=== PATIENT | female | born 1955 | race Caucasian/White ===

== ENCOUNTER 2017-01-24 08:14 | Outpatient (REF) ==
[~2017-01-24 08:14] MED LIST: GLUCOPHAGE1000 MG PO; GLUCOTROL10 MG PO; ZESTRIL5 MG PO; [UNRECOGNIZED DRUG - REMARK]
== END 2017-01-24 21:07 | disposition home or self-care (01) ==
LOC: MRD 08:14
DX: Z02.1 Encounter for pre-employment examination (principal)

== ENCOUNTER 2017-03-30 07:04 | Outpatient (CLI) | payer OTHER ==
[~2017-03-30 07:04] MED LIST changes: +GLIP10TA3 PO; -GLUCOPHAGE1000 MG PO; -GLUCOTROL10 MG PO; +LISI5TAB18 PO; +METF1000 PO; -ZESTRIL5 MG PO; -[UNRECOGNIZED DRUG - REMARK]
[2017-03-30 08:30] LABS: ALBUMIN 3.9 g/dL (3.4-5.0); ANION GAP 11.2 (8-16); CARBON DIOXIDE 26.9 mmol/L (21-32); CREATININE 0.9 mg/dL (0.6-1.3); MAGNESIUM 1.4 mg/dL (1.8-2.4); POTASSIUM 4.1 mmol/L (3.5-5.1); TOTAL BILIRUBIN 0.9 mg/dL (0.0-1.0); TOTAL PROTEIN, SERUM 7.2 g/dL (6.4-8.2)
[2017-03-30 15:55] LABS: CHOL/HDL RATIO 2.6 (1-4.5)
== END 2017-03-30 17:31 | disposition home or self-care (01) ==
LOC: MLB 07:04
PROVIDERS: ATTEND Internal Medicine Geriatric Medicine
DX: E11.9 Type 2 diabetes mellitus without complications (principal)
CPT/HCPCS: 36415; 80053; 83036; 83735

== ENCOUNTER → 2018-03-25 | Outpatient (CLI) | payer OTHER ==
[2018-03-25 09:53] LABS: BASOPHILS % (AUTO) 0.5 % (0.0-2.0); EOSINOPHILS # (AUTO) 0.1 K/uL (0-0.4); EOSINOPHILS % (AUTO) 1.7 % (0.0-4.0); HEMATOCRIT 42.2 % (36-48); HEMOGLOBIN 14.5 g/dL (12.0-16.0); LYMPHOCYTES # (AUTO) 2.4 K/uL (2.5-16.5); MEAN CORPUSCULAR HEMOGLOBIN 33 pg (27-31); MEAN CORPUSCULAR HGB CONC 34 g/dL (33-37); MEAN CORPUSCULAR VOLUME 95.6 fL (80-94); MONOCYTES # (AUTO) 0.4 K/uL (0.8-1.0); MONOCYTES % (AUTO) 5.2 % (1.7-9.3); NEUTROPHILS % (AUTO) 57.6 % (42.2-75.2); PLATELET COUNT (AUTO) 254 K/uL (140-450); RED BLOOD CELL COUNT(AUTO) 4.41 MIL/uL (4.20-5.40); RED CELL DISTRIBUTION WIDTH 12.9 % (11.6-13.7); WHITE BLOOD COUNT (AUTO) 6.9 K/uL (4.8-10.8)
[2018-03-25 10:10] LABS: ANION GAP 14.1 (8-16); CARBON DIOXIDE 26.1 mmol/L (21-32); CHOL/HDL RATIO 2.3 (1-4.5); POTASSIUM 4.2 mmol/L (3.5-5.1); TOTAL BILIRUBIN 0.7 mg/dL (0.0-1.0)
[2018-03-25 10:23] LABS: ALBUMIN 4.4 g/dL (3.4-5.0); CREATININE 0.9 mg/dL (0.6-1.3)
[2018-03-26 09:14] LABS: MICROALBUMIN, UR RANDOM 140.5 ug/mL (Not Estab.)
== END ==
LOC: MLB 09:32
PROVIDERS: ATTEND Internal Medicine Geriatric Medicine
DX: E11.9 Type 2 diabetes mellitus without complications (principal); I10 Essential (primary) hypertension; E55.9 Vitamin D deficiency, unspecified
CPT/HCPCS: 36415; 80053; 82043; 82306; 83036; 85025

== ENCOUNTER 2018-08-02 16:43 | Emergency (ER) | payer OTHER ==
[~2018-08-02] VITALS: Ht 157.5 cm; Wt 66.7 kg
[2018-08-02 16:46] VITALS: BP 159/88
[2018-08-02 17:53] VITALS: BP 150/82
== END 2018-08-02 17:53 | disposition home or self-care (01) ==
LOC: MED 16:43
DX: S80.861A Insect bite (nonvenomous), right lower leg, initial encounter (principal); M79.604 Pain in right leg; E11.9 Type 2 diabetes mellitus without complications; I10 Essential (primary) hypertension; Z79.84 Long term (current) use of oral hypoglycemic drugs; Z79.899 Other long term (current) drug therapy; W57.XXXA Bitten or stung by nonvenomous insect and other nonvenomous arthropods, initial encounter; W10.9XXA Fall (on) (from) unspecified stairs and steps, initial encounter; Y93.89 Activity, other specified; Y92.480 Sidewalk as the place of occurrence of the external cause; Y99.8 Other external cause status
CPT/HCPCS: 73590; 99284; Q0092

== ENCOUNTER 2018-10-16 13:52 | Emergency (ER) | payer OTHER ==
[~2018-10-16] VITALS: Ht 157.5 cm; Wt 66.7 kg
[2018-10-16 13:57] VITALS: BP 134/76
--- NOTE | 2018-10-16 13:59 | NUR ---
PT AMBULATED TO E
--- NOTE | 2018-10-16 14:00 | NUR ---
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 0/10 PAIN CMS INTACT.
--- NOTE | 2018-10-16 14:20 | NUR ---
Patient discharged with v/s stable. Written and verbal after care instructions given and explained. Patient verbalized understanding. Ambulatory with steady gait. All questions addressed prior to discharge. Advised to follow up with PMD.
[2018-10-16 16:14] VITALS: BP 120/78
--- NOTE | 2018-10-16 16:15 | NUR ---
Cass whitten in EDM - 10/16/18 at 1615 by [email or web address] Patient discharged with v/s stable. Written and verbal after care instructions given and explained. Patient verbalized understanding. Ambulatory with steady gait. All questions addressed prior to discharge. Advised to follow up with PMD.
[2018-10-17 06:25] LABS: HEPATITIS B CORE AB TOTAL Negative (Negative); HEPATITIS B SURFACE ANTIBODY Reactive (.); HEPATITIS B SURFACE ANTIGEN Negative (Negative); HEPATITIS C VIRUS ANTIBODY <0.1 s/co ratio (0.0-0.9)
== END 2018-10-16 14:20 | disposition home or self-care (01) ==
LOC: MED 13:52
DX: S61.031A Puncture wound without foreign body of right thumb without damage to nail, initial encounter (principal); E11.9 Type 2 diabetes mellitus without complications; I10 Essential (primary) hypertension; Z79.84 Long term (current) use of oral hypoglycemic drugs; Z79.899 Other long term (current) drug therapy; W46.0XXA Contact with hypodermic needle, initial encounter; Y93.89 Activity, other specified; Y92.234 Operating room of hospital as the place of occurrence of the external cause; Y99.0 Civilian activity done for income or pay
CPT/HCPCS: 36415; 86702; 86704; 86706; 86803; 87340; 99283

== ENCOUNTER 2018-11-02 16:47 | Emergency (ER) | payer OTHER ==
[~2018-11-02] VITALS: Ht 157.5 cm; Wt 66.7 kg
[2018-11-02 16:52] VITALS: BP 136/102
--- NOTE | 2018-11-02 16:54 | NUR ---
PT AMBULATED TO E
--- NOTE | 2018-11-02 17:00 | NUR ---
63 YO F BIB SELF W/ C/O SORE THROAT X 2 WEEKS. STATES SHE GETS COUGHING ATTACKS. 8/10 PAIN. DENIES N/V/D/FEVERS/CP. NO OTHER COMPLAINTS. PT W/ PATENT AIRWAY. SPEAKING IN FULL,COMPETE SENTENCES. AAOX4, GCS 15. CMS INTACT, RR EVEN AND UNLABORED. LUNGS BL CLEAR. ABD SOFT, NON-TENDER. ER MD NOTIFIED OF PT STATUS. PT NEEDS MET. SAFETY PRECAUTIONS IN PLACE. WILL CONTINUE TO MONITOR.
--- NOTE | 2018-11-02 17:26 | NUR ---
dr. cline evaluating pt
[2018-11-02 17:37] VITALS: BP 129/88
--- NOTE | 2018-11-02 17:37 | NUR ---
Patient discharged with v/s stable. Written and verbal after care instructions given and explained. Patient alert, oriented and verbalized understanding of instructions. Ambulatory with steady gait. All questions addressed prior to discharge. ID band removed. Patient advised to follow up with PMD. Rx of naprosyn and promethazine given. Patient educated on indication of medication including possible reaction and side effects. Opportunity to ask questions provided and answered.
== END 2018-11-02 17:37 | disposition home or self-care (01) ==
LOC: MED 16:47
DX: J20.9 Acute bronchitis, unspecified (principal); E11.9 Type 2 diabetes mellitus without complications; I10 Essential (primary) hypertension; Z90.49 Acquired absence of other specified parts of digestive tract; Z90.710 Acquired absence of both cervix and uterus; Z79.84 Long term (current) use of oral hypoglycemic drugs; Z79.899 Other long term (current) drug therapy
CPT/HCPCS: 99283

== ENCOUNTER 2018-11-16 17:05 | Emergency (ER) | payer OTHER ==
[~2018-11-16] VITALS: Ht 165.1 cm; Wt 69.2 kg
[2018-11-16 17:13] VITALS: BP 124/98
[2018-11-16 18:26] VITALS: BP 124/98
== END 2018-11-16 18:13 | disposition home or self-care (01) ==
LOC: MED 17:05
DX: J20.9 Acute bronchitis, unspecified (principal); E11.9 Type 2 diabetes mellitus without complications; I10 Essential (primary) hypertension; Z79.899 Other long term (current) drug therapy; Z79.84 Long term (current) use of oral hypoglycemic drugs
CPT/HCPCS: 99283

== ENCOUNTER 2018-11-17 11:08 | Emergency (ER) | payer OTHER ==
[~2018-11-17] VITALS: Ht 157.5 cm; Wt 67.2 kg
[2018-11-17] MEDS ORDERED: NACL 0.9% 1,000 ML IV SCH (11:18)
[2018-11-17] MEDS ORDERED: ONDANSETRON 4 MG/2 ML VIAL IVP ONE (11:20)
[2018-11-17 11:25] VITALS: BP 122/63
--- NOTE | 2018-11-17 11:35 | NUR ---
PT. ARRIVED TO THE ED DUE TO VOMITING SINCE THIS MORNING, PT. STATES " I WENT TO [place] LAST NIGHT AND ATE SOME [employer] CHEESE FRIES AND THEN TOOK MY ANTIBIOTIC AND AROUND 3 AM I STARTED VOMITING ALL MY DINNER". 0/10 PAIN AT THIS TIME. DENIES NAUSEA AT THIS TIME. DENIES ANY BLOOD IN STOOL OR VOMIT. AFEBRILE. DENIES ANY FEEVR OR CHILLS. RR EVEN AND UNLABORED. VSS. PT. COOL AND WARM TO TOUCH. WILL CONTINUE TO MONITOR. SAFETY PRECAUTIONS IN PLACE. ER MADE AWARE.
--- NOTE | 2018-11-17 11:45 | NUR ---
lab specimen picked up at this time
[2018-11-17 12:02] LABS: BASOPHILS % (AUTO) 0.1 % (0.0-2.0); EOSINOPHILS % (AUTO) 0.3 % (0.0-4.0); HEMATOCRIT 39.3 % (36-48); LYMPHOCYTES # (AUTO) 0.7 K/uL (2.5-16.5); LYMPHOCYTES % (AUTO) 5.8 % (20.5-51.1); MEAN CORPUSCULAR HEMOGLOBIN 32 pg (27-31); MEAN CORPUSCULAR HGB CONC 33 g/dL (33-37); MEAN CORPUSCULAR VOLUME 95.9 fL (80-94); MONOCYTES # (AUTO) 0.5 K/uL (0.8-1.0); MONOCYTES % (AUTO) 3.8 % (1.7-9.3); NEUTROPHILS # (AUTO) 10.9 K/uL (1.8-7.7); PLATELET COUNT (AUTO) 239 K/uL (140-450); RED BLOOD CELL COUNT(AUTO) 4.09 MIL/uL (4.20-5.40); RED CELL DISTRIBUTION WIDTH 12.8 % (11.6-13.7); WHITE BLOOD COUNT (AUTO) 12.1 K/uL (4.8-10.8)
--- NOTE | 2018-11-17 12:13 | NUR ---
PT. RESTING COMFORTABLY IN BED, VSS. HOB ELEVATED. WILL CONTINUE TO MONITOR.
[2018-11-17 12:19] LABS: ANION GAP 14.4 (8-16); CARBON DIOXIDE 26.8 mmol/L (21-32); CREATININE 1.2 mg/dL (0.6-1.3); POTASSIUM 4.2 mmol/L (3.5-5.1); TOTAL BILIRUBIN 0.9 mg/dL (0.0-1.0)
--- NOTE | 2018-11-17 12:24 | NUR ---
SAMARA FROM LAB CALLED TO REPORT GLUCOSE :[phone]. ER MD MANNING MADE AWARE.
[2018-11-17 13:40] VITALS: BP 132/57
--- NOTE | 2018-11-17 13:40 | NUR ---
Patient discharged with v/s stable. Written and verbal after care instructions given and explained. Patient alert, oriented and verbalized understanding of instructions. Ambulatory with steady gait. All questions addressed prior to discharge. ID band removed. Patient advised to follow up with PMD. Rx of ZOFRAN 8MG AND PREDNISONE 20MG given. Patient educated on indication of medication including possible reaction and side effects. Opportunity to ask questions provided and answered.
== END 2018-11-17 13:40 | disposition home or self-care (01) ==
LOC: MED 11:08
DX: R05 Cough (principal); R06.02 Shortness of breath; R19.7 Diarrhea, unspecified; R11.2 Nausea with vomiting, unspecified; E11.9 Type 2 diabetes mellitus without complications; I10 Essential (primary) hypertension; Z90.49 Acquired absence of other specified parts of digestive tract; Z90.710 Acquired absence of both cervix and uterus; Z90.89 Acquired absence of other organs; Z79.84 Long term (current) use of oral hypoglycemic drugs; Z79.899 Other long term (current) drug therapy
CPT/HCPCS: 36415; 71045; 80053; 82948; 83690; 85025; 96360; 99284; J7030

== ENCOUNTER 2019-01-08 08:39 | Outpatient (CLI) | payer OTHER ==
[2019-01-08 09:52] LABS: ANION GAP 10.1 (8-16); CARBON DIOXIDE 26.8 mmol/L (21-32); CHOL/HDL RATIO 2.3 (1-4.5); CREATININE 0.8 mg/dL (0.6-1.3); POTASSIUM 4.9 mmol/L (3.5-5.1); TOTAL BILIRUBIN 0.9 mg/dL (0.0-1.0)
== END 2019-01-08 21:36 | disposition home or self-care (01) ==
LOC: MLB 08:39
PROVIDERS: ATTEND Internal Medicine Geriatric Medicine
DX: E11.9 Type 2 diabetes mellitus without complications (principal); I10 Essential (primary) hypertension
CPT/HCPCS: 36415; 80053; 83036

== ENCOUNTER 2019-03-06 16:42 | Outpatient (CLI) | payer OTHER | END 2019-03-06 21:28 | disposition home or self-care (01) | LOC: MRD 16:42 | PROVIDERS: ATTEND Internal Medicine Geriatric Medicine | DX: M43.17 Spondylolisthesis, lumbosacral region (principal); M48.07 Spinal stenosis, lumbosacral region; M16.12 Unilateral primary osteoarthritis, left hip | CPT/HCPCS: 72110; 73501; 73590 ==

== ENCOUNTER 2019-03-10 19:07 | Emergency (ER) | payer OTHER ==
[~2019-03-10] VITALS: Ht 157.5 cm; Wt 68.0 kg
[2019-03-10 19:11] VITALS: BP 150/85
--- NOTE | 2019-03-10 19:13 | NUR ---
TO CHAIR E AMBULATORY
--- NOTE | 2019-03-10 19:45 | NUR ---
Patient discharged with v/s stable. Written and verbal after care instructions given and explained. Patient alert, oriented and verbalized understanding of instructions. Ambulatory with steady gait. All questions addressed prior to discharge. ID band removed. Patient advised to follow up with PMD. Opportunity to ask questions provided and answered.
--- NOTE | 2019-03-10 19:46 | NUR ---
PT BIB SELF C/O NEEDLE STICK TO LEFT HAND. DENIES PAIN, BLEEDING CONTROLLED.
[2019-03-10 19:47] VITALS: BP 147/80
[2019-03-13 09:25] LABS: HEPATITIS B CORE AB TOTAL Negative (Negative); HEPATITIS B SURFACE ANTIBODY Reactive (.); HEPATITIS B SURFACE ANTIGEN Negative (Negative); HEPATITIS C VIRUS ANTIBODY <0.1 s/co ratio (0.0-0.9)
== END 2019-03-10 19:45 | disposition home or self-care (01) ==
LOC: MED 19:07
DX: S61.432A Puncture wound without foreign body of left hand, initial encounter (principal); I10 Essential (primary) hypertension; E11.9 Type 2 diabetes mellitus without complications; Z90.89 Acquired absence of other organs; Z79.84 Long term (current) use of oral hypoglycemic drugs; W46.1XXA Contact with contaminated hypodermic needle, initial encounter; Y93.89 Activity, other specified; Y92.238 Other place in hospital as the place of occurrence of the external cause; Y99.8 Other external cause status
CPT/HCPCS: 36415; 86702; 86704; 86706; 86803; 87340; 99283

== ENCOUNTER 2019-03-24 10:03 | Outpatient (CLI) | payer OTHER ==
[2019-03-24 10:40] LABS: BASOPHILS # (AUTO) 0.1 K/uL (0.00-0.22); BASOPHILS % (AUTO) 1.6 % (0.0-2.0); EOSINOPHILS # (AUTO) 0.2 K/uL (0-0.4); EOSINOPHILS % (AUTO) 2.2 % (0.0-4.0); HEMATOCRIT 39.2 % (36-48); HEMOGLOBIN 13.3 g/dL (12.0-16.0); LYMPHOCYTES # (AUTO) 1.8 K/uL (2.5-16.5); LYMPHOCYTES % (AUTO) 25.8 % (20.5-51.1); MEAN CORPUSCULAR HEMOGLOBIN 32 pg (27-31); MEAN CORPUSCULAR HGB CONC 34 g/dL (33-37); MEAN CORPUSCULAR VOLUME 95.5 fL (80-94); MONOCYTES # (AUTO) 0.3 K/uL (0.8-1.0); NEUTROPHILS # (AUTO) 4.7 K/uL (1.8-7.7); NEUTROPHILS % (AUTO) 66.4 % (42.2-75.2); PLATELET COUNT (AUTO) 273 K/uL (140-450); RED BLOOD CELL COUNT(AUTO) 4.11 MIL/uL (4.20-5.40); RED CELL DISTRIBUTION WIDTH 12.5 % (11.6-13.7); WHITE BLOOD COUNT (AUTO) 7.2 K/uL (4.8-10.8)
[2019-03-24 10:56] LABS: ALBUMIN 4.1 g/dL (3.4-5.0); ANION GAP 13.3 (8-16); CARBON DIOXIDE 26.9 mmol/L (21-32); CREATININE 1.1 mg/dL (0.6-1.3); POTASSIUM 4.2 mmol/L (3.5-5.1); TOTAL BILIRUBIN 0.8 mg/dL (0.0-1.0)
== END 2019-03-24 23:04 | disposition home or self-care (01) ==
LOC: MLB 10:03
PROVIDERS: ATTEND Internal Medicine Geriatric Medicine
DX: E55.9 Vitamin D deficiency, unspecified (principal); E11.9 Type 2 diabetes mellitus without complications
CPT/HCPCS: 36415; 80053; 83036; 85025

== ENCOUNTER 2019-07-08 18:44 | Emergency (ER) | payer OTHER ==
[~2019-07-08] VITALS: Ht 157.5 cm; Wt 66.7 kg
[2019-07-08 19:02] VITALS: BP 128/77
--- NOTE | 2019-07-08 19:30 | NUR ---
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 NO BLEEDING NOTED AT THIS TIME. NO C/O PAIN. TDAP FROM LAST [address] A[address] MD [address] AUSTIN MADE AWARE WILL CONTINUE TO MONITOR CLOSELY. HX--DM, HTN
--- NOTE | 2019-07-08 19:33 | NUR ---
DR. MANNING EVALUATING PT
[2019-07-08 19:43] VITALS: BP 117/69
[2019-07-10 07:10] LABS: HEPATITIS B SURFACE ANTIGEN Negative (Negative)
== END 2019-07-08 19:43 | disposition home or self-care (01) ==
LOC: MED 18:44
DX: S61.233A Puncture wound without foreign body of left middle finger without damage to nail, initial encounter (principal); E11.9 Type 2 diabetes mellitus without complications; I10 Essential (primary) hypertension; Z90.49 Acquired absence of other specified parts of digestive tract; Z90.710 Acquired absence of both cervix and uterus; Z79.899 Other long term (current) drug therapy; W27.3XXA Contact with needle (sewing), initial encounter; Y93.89 Activity, other specified; Y92.89 Other specified places as the place of occurrence of the external cause; Y99.8 Other external cause status
CPT/HCPCS: 36415; 86592; 86702; 86803; 87340; 99283

== ENCOUNTER 2019-09-08 12:05 | Outpatient (CLI) | payer OTHER | END 2019-09-08 20:43 | disposition home or self-care (01) | LOC: MRD 12:05 | PROVIDERS: ATTEND Internal Medicine Geriatric Medicine | DX: M43.16 Spondylolisthesis, lumbar region (principal); M51.14 Intervertebral disc disorders with radiculopathy, thoracic region; M47.26 Other spondylosis with radiculopathy, lumbar region; Z90.49 Acquired absence of other specified parts of digestive tract | CPT/HCPCS: 72080 ==

== ENCOUNTER 2019-09-17 07:54 | Outpatient (CLI) | payer OTHER ==
[2019-09-17 08:21] LABS: BASOPHILS % (AUTO) 0.8 % (0.0-2.0); EOSINOPHILS # (AUTO) 0.1 K/uL (0-0.4); EOSINOPHILS % (AUTO) 1.6 % (0.0-4.0); HEMATOCRIT 37.1 % (36-48); HEMOGLOBIN 12.6 g/dL (12.0-16.0); LYMPHOCYTES % (AUTO) 40.9 % (20.5-51.1); MEAN CORPUSCULAR HEMOGLOBIN 33 pg (27-31); MEAN CORPUSCULAR HGB CONC 34 g/dL (33-37); MEAN CORPUSCULAR VOLUME 96.9 fL (80-94); MONOCYTES # (AUTO) 0.3 K/uL (0.8-1.0); MONOCYTES % (AUTO) 5.8 % (1.7-9.3); NEUTROPHILS # (AUTO) 2.4 K/uL (1.8-7.7); NEUTROPHILS % (AUTO) 50.9 % (42.2-75.2); PLATELET COUNT (AUTO) 251 K/uL (140-450); RED BLOOD CELL COUNT(AUTO) 3.83 MIL/uL (4.20-5.40); RED CELL DISTRIBUTION WIDTH 12.9 % (11.6-13.7); WHITE BLOOD COUNT (AUTO) 4.8 K/uL (4.8-10.8)
[2019-09-17 08:35] LABS: CREATININE 0.7 mg/dL (0.6-1.3)
[2019-09-17 08:49] LABS: ALBUMIN 3.9 g/dL (3.4-5.0); CHOL/HDL RATIO 2.3 (1-4.5); MAGNESIUM 1.2 mg/dL (1.8-2.4); THYROID STIMULATING HORMONE 1.61 uIU/mL (0.34-3.74); TOTAL BILIRUBIN 0.5 mg/dL (0.0-1.0)
[2019-09-18 09:06] LABS: MICROALBUMIN, UR RANDOM 19.7 ug/mL (Not Estab.)
[2019-09-19 15:06] LABS: ANTI-NUCLEAR ANTIBODY TITER Negative (.)
== END 2019-09-17 20:21 | disposition home or self-care (01) ==
LOC: MLB 07:54
PROVIDERS: ATTEND Internal Medicine Geriatric Medicine
DX: E11.9 Type 2 diabetes mellitus without complications (principal)
CPT/HCPCS: 36415; 80053; 82043; 83036; 83735; 84443; 85025; 85651; 86038; 86430

== ENCOUNTER 2020-04-22 09:49 | Outpatient (CLI) | payer OTHER ==
[2020-04-22 10:20] LABS: BASOPHILS % (AUTO) 0.6 % (0.0-2.0); EOSINOPHILS # (AUTO) 0.1 K/uL (0-0.4); EOSINOPHILS % (AUTO) 1.5 % (0.0-4.0); HEMOGLOBIN 13.4 g/dL (12.0-16.0); LYMPHOCYTES # (AUTO) 1.7 K/uL (2.5-16.5); LYMPHOCYTES % (AUTO) 28.4 % (20.5-51.1); MEAN CORPUSCULAR HEMOGLOBIN 34 pg (27-31); MEAN CORPUSCULAR HGB CONC 34 g/dL (33-37); MEAN CORPUSCULAR VOLUME 97.6 fL (80-94); MONOCYTES # (AUTO) 0.3 K/uL (0.8-1.0); MONOCYTES % (AUTO) 4.6 % (1.7-9.3); NEUTROPHILS # (AUTO) 3.9 K/uL (1.8-7.7); NEUTROPHILS % (AUTO) 64.9 % (42.2-75.2); PLATELET COUNT (AUTO) 254 K/uL (140-450); RED BLOOD CELL COUNT(AUTO) 3.99 MIL/uL (4.20-5.40); RED CELL DISTRIBUTION WIDTH 12.9 % (11.6-13.7)
[2020-04-22 11:27] LABS: ALBUMIN 3.9 g/dL (3.4-5.0); ANION GAP 13.5 (8-16); CARBON DIOXIDE 27.2 mmol/L (21-32); CHOL/HDL RATIO 2.8 (1-4.5); CREATININE 0.9 mg/dL (0.6-1.3); POTASSIUM 4.7 mmol/L (3.5-5.1); TOTAL BILIRUBIN 0.7 mg/dL (0.0-1.0)
[2020-04-23 08:10] LABS: MICROALBUMIN, UR RANDOM 29.6 ug/mL (Not Estab.)
== END 2020-04-22 21:04 | disposition home or self-care (01) ==
LOC: MLB 09:49
PROVIDERS: ATTEND Internal Medicine Geriatric Medicine
DX: Z00.00 Encounter for general adult medical examination without abnormal findings (principal); I10 Essential (primary) hypertension; E11.9 Type 2 diabetes mellitus without complications
CPT/HCPCS: 36415; 80053; 82043; 82306; 83036; 85025

== ENCOUNTER 2020-10-04 19:36 | Emergency (ER) | payer OTHER ==
[~2020-10-04] VITALS: Ht 157.5 cm; Wt 69.9 kg
[2020-10-04 19:37] VITALS: BP 161/74
[2020-10-04] MEDS ORDERED: ASPIRIN 325 MG TAB PO ONE (19:55)
[2020-10-04] MEDS ORDERED: LORazepam 0.5 MG TAB PO ONE (19:55)
[2020-10-04 20:20] LABS: BASOPHILS % (AUTO) 0.5 % (0.0-2.0); EOSINOPHILS # (AUTO) 0.1 K/uL (0-0.4); EOSINOPHILS % (AUTO) 1.5 % (0.0-4.0); HEMATOCRIT 35.7 % (36-48); HEMOGLOBIN 12.2 g/dL (12.0-16.0); LYMPHOCYTES # (AUTO) 2.6 K/uL (2.5-16.5); LYMPHOCYTES % (AUTO) 35.6 % (20.5-51.1); MEAN CORPUSCULAR HEMOGLOBIN 33 pg (27-31); MEAN CORPUSCULAR HGB CONC 34 g/dL (33-37); MONOCYTES # (AUTO) 0.5 K/uL (0.8-1.0); MONOCYTES % (AUTO) 6.7 % (1.7-9.3); NEUTROPHILS % (AUTO) 55.7 % (42.2-75.2); PLATELET COUNT (AUTO) 261 K/uL (140-450); RED BLOOD CELL COUNT(AUTO) 3.65 MIL/uL (4.20-5.40); RED CELL DISTRIBUTION WIDTH 12.4 % (11.6-13.7); WHITE BLOOD COUNT (AUTO) 7.2 K/uL (4.8-10.8)
[2020-10-04 20:34] LABS: ANION GAP 13.1 (8-16); CARBON DIOXIDE 26.9 mmol/L (21-32); CREATININE 1.1 mg/dL (0.6-1.3); TOTAL BILIRUBIN 0.5 mg/dL (0.0-1.0)
[2020-10-04] MEDS ORDERED: KETOROLAC 30 MG/ML VIAL IM ONE (20:50)
[2020-10-04] MEDS ORDERED: ONDANSETRON 4 MG ODT ONE (21:15)
[2020-10-04] MEDS ORDERED: ONDANSETRON 4 MG ODT PO ONE (21:15)
[2020-10-04 21:47] VITALS: BP 147/64
== END 2020-10-04 21:47 | disposition home or self-care (01) ==
LOC: MED 19:36
DX: F41.9 Anxiety disorder, unspecified (principal); R07.89 Other chest pain; E11.9 Type 2 diabetes mellitus without complications; I10 Essential (primary) hypertension; Z90.49 Acquired absence of other specified parts of digestive tract; Z90.710 Acquired absence of both cervix and uterus; Z79.84 Long term (current) use of oral hypoglycemic drugs; Z79.899 Other long term (current) drug therapy
CPT/HCPCS: 36415; 71045; 80053; 83690; 84484; 85025; 93005; 96372; 99285; J1885; Q0162

== ENCOUNTER 2021-04-27 01:05 | Emergency (ER) | payer OTHER ==
[~2021-04-27] VITALS: Ht 157.5 cm; Wt 69.4 kg
[2021-04-27 01:13] VITALS: BP 128/74
--- NOTE | 2021-04-27 01:13 | NUR ---
TO BED AMBULATORY
--- NOTE | 2021-04-27 01:19 | NUR ---
COVERING PRIMARY RN FOR LUNCH RELIEF. SEE COMPLETE ASSESSMENT
--- NOTE | 2021-04-27 01:37 | NUR ---
DR. NÚÑEZ AT BEDSIDE FOR MSE
[2021-04-27] MEDS ORDERED: KETOROLAC 30 MG/ML VIAL IM ONE (01:45)
[2021-04-27] MEDS ORDERED: METH4TAB3 PO (02:01)
[2021-04-27] MEDS ORDERED: ACET-8386 PO (02:01)
[2021-04-27 02:09] VITALS: BP 128/74
--- NOTE | 2021-04-27 02:10 | NUR ---
Patient discharged with v/s stable. Written and verbal after care instructions given and explained. Patient alert, oriented and verbalized understanding of instructions. Ambulatory with steady gait. All questions addressed prior to discharge. ID band removed. Patient advised to follow up with PMD. Rx of NORCO AND MEDROL given. Patient educated on indication of medication including possible reaction and side effects. Opportunity to ask questions provided and answered.
== END 2021-04-27 02:10 | disposition home or self-care (01) ==
LOC: MED 01:05
DX: M54.9 Dorsalgia, unspecified (principal); G89.29 Other chronic pain; E11.9 Type 2 diabetes mellitus without complications; I10 Essential (primary) hypertension; Z79.84 Long term (current) use of oral hypoglycemic drugs; Z79.899 Other long term (current) drug therapy
CPT/HCPCS: 96372; 99283; J1885

== ENCOUNTER 2021-08-22 07:53 | Emergency (ER) | payer OTHER ==
[~2021-08-22] VITALS: Ht 157.5 cm; Wt 70.4 kg
[~2021-08-22 07:53] MED LIST changes: +ACET-8386 PO; +METH4TAB3 PO
[2021-08-22 08:00] VITALS: BP 152/77
--- NOTE | 2021-08-22 08:05 | NUR ---
PATIENT AMBUALTED TO BED 11
--- NOTE | 2021-08-22 08:08 | NUR ---
66 Y FEMALE WITH C/O NECK PAIN X3 DAYS. PT STATED "SHE SLEPT ON THE COUCH TUESDAY AND HAS HAD PAIN EVER SINCE." PT IS UNABLE TO MOVE HER NECK WITHOUT EXPERINCING PAIN. OBIVIOUS SIGNS OF STIFNESS NOTED UPON ASSESSMENT. PT STATED SHE USED A HEATING PAD AT HOME, WHICH PROVIDED LITTLE RELIEF PMH:DM, HTN,HYSTERECTGOMY NKA
--- NOTE | 2021-08-22 08:10 | NUR ---
DR. WILDER BEDSIDE EVALUATING PT
[2021-08-22] MEDS ORDERED: DEXAMETHASONE 10 MG/ML VIAL IM ONE (08:20)
[2021-08-22] MEDS ORDERED: TIZA4TAB11 PO (08:33)
[2021-08-22] MEDS ORDERED: KETOROLAC 30 MG/ML VIAL IM ONE (09:05)
[2021-08-22 09:25] VITALS: BP 152/77
--- NOTE | 2021-08-22 09:26 | NUR ---
Patient discharged with v/s stable. Written and verbal after care instructions given and explained. Patient alert, oriented and verbalized understanding of instructions. Ambulatory with steady gait. All questions addressed prior to discharge. ID band removed. Patient advised to follow up with PMD. Rx of ZANAFLEX given. Patient educated on indication of medication including possible reaction and side effects. Opportunity to ask questions provided and answered.
== END 2021-08-22 09:25 | disposition home or self-care (01) ==
LOC: MED 07:53
DX: M54.2 Cervicalgia (principal); E11.9 Type 2 diabetes mellitus without complications; I10 Essential (primary) hypertension; Z79.84 Long term (current) use of oral hypoglycemic drugs; Z79.899 Other long term (current) drug therapy
CPT/HCPCS: 96372; 99284; J1100; J1885

== ENCOUNTER 2021-08-24 14:13 | Emergency (ER) | payer OTHER ==
[~2021-08-24] VITALS: Ht 157.5 cm; Wt 71.7 kg
[~2021-08-24 14:13] MED LIST changes: +TIZA4TAB11 PO
[2021-08-24 14:35] VITALS: BP 92/57
--- NOTE | 2021-08-24 14:35 | NUR ---
Pt necks spasms since last Tuesday. Neck spams are constant. Pain 8/10, aching, constant. Pt seen here [facility] on Tuesday morning. Pt was given rx for muscle relaxer 11am, with only mild relief. Pt BP 90s/58. Pt has been trying cold packs and heat packs without any relief. Allergies: NKA Med hx: HTN and DM
--- NOTE | 2021-08-24 16:00 | NUR ---
MD Rordiguez made aware pt pain decreased to pain level 5/10.
[2021-08-24] MEDS: MORPHINE SULFATE 4 MG/ML SYR IM ONE (16:01)
[2021-08-24] MEDS ORDERED: ACET-8386 PO (16:27)
[2021-08-24 16:38] VITALS: BP 134/66
--- NOTE | 2021-08-24 16:38 | NUR ---
Patient discharged with v/s stable. Written and verbal after care instructions given and explained. Patient alert, oriented and verbalized understanding of instructions. Ambulatory with steady gait. All questions addressed prior to discharge. ID band removed. Patient advised to follow up with PMD. Rx of Norman was given. Patient educated on indication of medication including possible reaction and side effects. Opportunity to ask questions provided and answered.
== END 2021-08-24 16:38 | disposition home or self-care (01) ==
LOC: MED 14:13
DX: S16.1XXA Strain of muscle, fascia and tendon at neck level, initial encounter (principal); E11.9 Type 2 diabetes mellitus without complications; I10 Essential (primary) hypertension; Z90.49 Acquired absence of other specified parts of digestive tract; Z98.890 Other specified postprocedural states; Z79.84 Long term (current) use of oral hypoglycemic drugs; Z79.899 Other long term (current) drug therapy; X58.XXXA Exposure to other specified factors, initial encounter; Y93.89 Activity, other specified; Y92.89 Other specified places as the place of occurrence of the external cause; Y99.8 Other external cause status
CPT/HCPCS: 96372; 99283; J2270